=== PATIENT | male | born 1980 | race Caucasian/White ===

== ENCOUNTER 2024-09-23 06:16 | Day surgery (SDC) | payer OTHER ==
[~2024-09-23] VITALS: Ht 188 cm; Wt 119.0 kg
[~2024-09-23 06:16] MED LIST: CLONAZEPAM1 MG PO; LEVOTHYROXINE50 MC1 PO; MIDAZOLAM HCL 5 MG/5 ML VIAL IV PRN; MIDAZOLAM HCL 5 MG/5 ML VIAL ONE; PREDNISONE20 MG; fentaNYL citrate 100 MCG/2 ML VIAL IV PRN; fentaNYL citrate 100 MCG/2 ML VIAL ONE
[2024-09-23 06:35] VITALS: BP 135/82
[2024-09-23] MEDS ORDERED: IBLOOD GLUCOSE TEST STRIP 1 EA TEST VI PRN (07:00)
[2024-09-23] MEDS ORDERED: LACTATED RINGER'S 1,000 ML IV SCH (07:00)
[2024-09-23] MEDS ORDERED: LIDOCAINE HCL 1% 5 ML SDV INJ ONE (07:00)
--- NOTE | 2024-09-23 07:36 | NUR ---
VISITED DURING SPIRITUAL CARE ROUNDS. PT SUPPORTED BY ASSEMBLER FLEXIBLE LEADS IN ROOM. BOTH DENY IMMEDIATE NEEDS, NO OVERT SIGNS OF ANXIETY. EXPRESS HOPE, CONFIDENCE IN CARE. SUPREME COURT JUDGE PROVIDED SUPPORTIVE PRESENCE, HOSPITALITY, PRAYER, FACILITATED INTERACTION WITH THERAPY ANIMAL.
--- NOTE | 2024-09-23 08:12 | NUR ---
09/23/24 0812 Kirti Lo 0804-PT ARRIVES TO PACU RESTING SEMI FOWLERS, VSS ON 2L VIA NC, REU. PT REACTIVE TO TACTILE STIMULI AND FALLS BACK TO SLEEP EASILY.
[2024-09-23 08:46] VITALS: BP 111/82
--- NOTE | 2024-09-23 09:27 | OR ---
[facility] [address], [place] [address] Signed DATE OF OPERATION: 09/23/2024 SURGEON: Malik Sweet MD PREOPERATIVE DIAGNOSES: 1. Sister with multiple colonic polyps starting in her 40s. 2. Intermittent rectal bleeding. POSTOPERATIVE DIAGNOSES: 1. 5 mm polyp at 19 cm in sigmoid colon. 2. 5 mm polyp at 45 cm in left colon. 3. 3 mm posterior anal skin tag. PROCEDURE: Colonoscopy with hot biopsy. ESTIMATED BLOOD LOSS: None. INDICATIONS: Bridget is a 44-year-old gentleman, asked to see me for his initial colonoscopy. He explained that his sister has had multiple colonic polyps removed starting in her 40s. She goes every few years. He said once in a while he has some blood with his bowel movements. He talked about scratching his skin near the anus in the past. He said that has not bothered him any time recently. He also has some anxiety and uses clonazepam . In the office, I had given him a pamphlet on colonoscopy. We had reviewed the nature of the test. There is risk including, but not limited to gas bloating, crampy abdominal pain, bleeding, perforation requiring surgery, and missed diagnosis. We also reviewed the written instructions for a bowel prep line by line. We also reviewed the need for IV conscious sedation. He understands an adult person has a taking home afterwards. He had expressed understanding and wished to proceed. PROCEDURE IN DETAIL: Bridget was taken into our endoscopy suite and placed in the left lateral decubitus position. He was given a total of 7 mg of Versed and 125 mcg of fentanyl to cover the case. A digital rectal exam was performed. He has excellent sphincter tone. There were no masses. Just to the left of the posterior midline of the anus externally, he has a small 3 mm skin tag. I looked at it very carefully. I could not see any evidence of fistula tract or fistula opening or any granulation tissue. After this, the adult colonoscope was introduced and advanced under direct visualization of the camera up into Electronically Signed By: MALIK SWEET MD 09/23/24 0927 PATIENT NAME: BRIDGET MONTESINOS OPERATIVE REPORT DATE OF : 78 REPORT #: [id number] PHYSICIAN: MALIK SWEET MD PCP: SONA ADAMS REPORT IS CONFIDENTIAL AND NOT TO BE RELEASED WITHOUT AUTHORIZATION [facility] [address], [place] [address] Signed the cecum itself. His prep was quite good. We could easily see the appendiceal orifice and the ileocecal valve. The scope was then slowly withdrawn. We took several pictures throughout for photodocumentation. He had two polyps removed with the help of hot biopsy forceps. There was no diverticulosis. Once in the rectum, the scope was retroflexed and we really did not see any evidence of any internal or external hemorrhoids. After this, the gas was suctioned out and the colonoscope removed. Bridget tolerated the procedure quite well. RECOMMENDATIONS: I will see Bridget back in my office in 7 to 14 days to review his results. I suspect he will stay on the five year plan mainly due to his sister's history of colonic polyps. We will also look at his pathology report. Malik Sweet MD ALB/MODL /[id number] cc: MD Sona Travis PA Copies: MALIK SWEET MD, LINDA PA ~ Electronically Signed By: MALIK SWEET MD 09/23/24 0927 PATIENT NAME: BRIDGET MONTESINOS OPERATIVE REPORT DATE OF : 78 REPORT #: [id number] PHYSICIAN: MALIK SWEET MD PCP: SONA ADAMS REPORT IS CONFIDENTIAL AND NOT TO BE RELEASED WITHOUT AUTHORIZATION
== END 2024-09-23 08:55 | disposition home or self-care (01) ==
LOC: DS 06:16 → DSVR 06:17 → DS 07:30
PROVIDERS: ATTEND Colon & Rectal Surgery
PROC: 0DBN8ZX Excision of Sigmoid Colon, Via Natural or Artificial Opening Endoscopic, Diagnostic (ICD-10-PCS; 2024-09-23)
PROC: 0DBG8ZX Excision of Left Large Intestine, Via Natural or Artificial Opening Endoscopic, Diagnostic (ICD-10-PCS; principal; 2024-09-23 07:30)
DX: K62.5 Hemorrhage of anus and rectum (principal); K63.5 Polyp of colon; K64.4 Residual hemorrhoidal skin tags; F41.0 Panic disorder [episodic paroxysmal anxiety]; E06.3 Autoimmune thyroiditis; Z79.890 Hormone replacement therapy; Z79.899 Other long term (current) drug therapy; Z83.718 Family history of other colon polyps
CPT/HCPCS: 99153; G0500; J2250; J3010